=== PATIENT | female | born 1950 | race Two or more races ===

== ENCOUNTER 2019-03-16 23:56 | Inpatient (IN) | payer OTHER ==
[~2019-03-16] VITALS: Ht 152.4 cm; Wt 47.6 kg
[2019-03-17] MEDS ORDERED: SODIUM CHLORIDE 0.9% 1,000 ML IV ONE (00:30)
[2019-03-17] MEDS ORDERED: LORAZEPAM 1MG TABLET PO ONE (01:30)
[2019-03-17 01:42] LABS: BASOPHILS % 0.4 % (0.0-2.0); EOSINOPHILS % 0.6 % (0.0-5.0); HEMATOCRIT. 42.1 % (36.0-48.0); HEMOGLOBIN. 13.9 g/dL (12.0-16.0); LYMPHOCYTES % 18.5 % (20.0-50.0); MEAN CORPUSCULAR HEMOGLOBIN 29.1 pg (28.0-32.0); MEAN PLATELET VOLUME 10.4 fl (7.4-10.4); MONOCYTES % 6.7 % (2.0-8.0); NEUTROPHILS % 73.8 % (40.0-76.0); PLATELET 309 x1000/uL (130-400); RED BLOOD CELL COUNT 4.79 mill/uL (4.2-5.4); RED CELL DISTRIBUTION WIDTH 14.5 % (11.6-14.6)
[2019-03-17 01:45] LABS: CHLORIDE 105 mEq/L (98-107)
[2019-03-17 01:49] LABS: ETHANOL BLOOD < 10 mg/dL
[2019-03-17 01:53] LABS: CREATINE KINASE 445 IU/L (26-192)
[2019-03-17] MEDS ORDERED: HALOPERIDOL LACTATE 5MG/ML VIAL IM ONE (02:00)
[2019-03-17] MEDS ORDERED: ZIPRASIDONE MESYLATE 20MG/VIAL IM ONE (02:15)
[2019-03-17 02:29] LABS: CLARITY URINE CLEAR (CLEAR); COLOR URINE YELLOW (YELLOW); KETONES URINE TRACE (NEGATIVE); LEUKOCYTE ESTERASE URINE NEGATIVE (NEGATIVE); NITRITE URINE NEGATIVE (NEGATIVE); OCCULT BLOOD URINE 2+ (NEGATIVE); PH URINE 5.5 (4.5-8.0); PROTEIN URINE TRACE (NEGATIVE); SPECIFIC GRAVITY URINE 1.016 (1.005-1.030); UROBILINOGEN URINE 0.2 E.U./dL (0.2-1.0)
[2019-03-17] MEDS ORDERED: CEFTRIAXONE 1 G PREMIX 50 ML IV NR (02:45)
[2019-03-17] MEDS ORDERED: AZITHROMYCIN 500 MG in DEXT 5% WATER 250 ML IV SCH (02:45)
[2019-03-17 03:02] LABS: *AMPHETAMINES SCREEN URINE NEGATIVE (NEGATIVE)
[2019-03-17 03:03] LABS: *BARBITURATES SCREEN URINE NEGATIVE (NEGATIVE)
[2019-03-17 03:04] LABS: *BENZODIAZEPINES SCREEN URINE NEGATIVE (NEGATIVE); *COCAINE SCREEN URINE NEGATIVE (NEGATIVE); METHADONE URINE SCREEN NEGATIVE (NEGATIVE); OPIATES URINE SCREEN NEGATIVE (NEGATIVE); PHENCYCLIDINE URINE SCREEN NEGATIVE (NEGATIVE)
[2019-03-17 03:05] LABS: CANNABINOID URINE SCREEN NEGATIVE (NEGATIVE)
[2019-03-17] MEDS ORDERED: ONDANSETRON HCL 4MG/2ML INJ IV PRN (14:30)
[2019-03-17] MEDS ORDERED: CEFTRIAXONE 1 G PREMIX 50 ML IV SCH (14:30)
[2019-03-17] MEDS ORDERED: ACETAMINOPHEN 325MG TABLET PO PRN (14:30)
[2019-03-17 15:18] VITALS: BP 133/74
[2019-03-17] MEDS: SODIUM CHLORIDE 0.9% 1,000 ML IV SCH (15:55)
[2019-03-17] MEDS ORDERED: DEXTROSE 50% WATER 50ML SYRINGE IV PRN (16:15)
[2019-03-17] MEDS: INSULIN LISPRO 100 UNITS/ML SUBCUT SCH ×2 (18:10→21:00)
[2019-03-17] MEDS: BLOOD SUGAR DIAGNOSTIC STRIP TEST SCH ×2 (18:25→21:32)
[2019-03-17] MEDS: HEPARIN 5000 UNITS/ML VIAL SUBCUT SCH (21:33)
[2019-03-17] MEDS: HALOPERIDOL LACTATE 5MG/ML VIAL IM PRN (23:04)
[2019-03-18] VITALS: BP 107/60
[2019-03-18] MEDS: CEFTRIAXONE 1 G PREMIX 50 ML IV SCH (02:45)
[2019-03-18] MEDS: SODIUM CHLORIDE 0.9% 1,000 ML IV SCH (02:45)
[2019-03-18 04:00] VITALS: BP 136/79
[2019-03-18] MEDS: AZITHROMYCIN 500 MG in DEXT 5% WATER 250 ML IV SCH (04:13)
[2019-03-18 06:44] LABS: BASOPHILS % 0.8 % (0.0-2.0); HEMATOCRIT. 36.9 % (36.0-48.0); HEMOGLOBIN. 12.2 g/dL (12.0-16.0); LYMPHOCYTES % 30.1 % (20.0-50.0); MEAN CORPUSCULAR HEMOGLOBIN 29.1 pg (28.0-32.0); MEAN CORPUSCULAR VOLUME 87.7 fL (81.0-99.0); MEAN PLATELET VOLUME 10.8 fl (7.4-10.4); MONOCYTES % 10.3 % (2.0-8.0); NEUTROPHILS % 55.8 % (40.0-76.0); PLATELET 289 x1000/uL (130-400); RED BLOOD CELL COUNT 4.21 mill/uL (4.2-5.4); RED CELL DISTRIBUTION WIDTH 14.6 % (11.6-14.6)
[2019-03-18] MEDS: BLOOD SUGAR DIAGNOSTIC STRIP TEST SCH ×4 (07:33→21:30)
[2019-03-18] MEDS: INSULIN LISPRO 100 UNITS/ML SUBCUT SCH ×4 (07:34→21:00)
[2019-03-18 08:00] VITALS: BP 161/92
[2019-03-18 09:46] LABS: CHLORIDE 107 mEq/L (98-107)
[2019-03-18] MEDS: HEPARIN 5000 UNITS/ML VIAL SUBCUT SCH ×2 (10:34→21:30)
[2019-03-18] MEDS ORDERED: GUAIFENESIN-DM 200MG-20MG/10ML UDC PO PRN (11:45)
[2019-03-18 12:15] VITALS: BP 157/77
[2019-03-18] MEDS: RISPERIDONE 0.5MG TABLET PO SCH (14:44)
[2019-03-18 16:04] VITALS: BP 148/63
[2019-03-18 20:00] VITALS: BP 134/88
[2019-03-18] MEDS: HALOPERIDOL LACTATE 5MG/ML VIAL IM PRN (21:04)
[2019-03-19] VITALS: BP 144/72
[2019-03-19] MEDS: CEFTRIAXONE 1 G PREMIX 50 ML IV SCH (03:28)
[2019-03-19] MEDS: SODIUM CHLORIDE 0.9% 1,000 ML IV SCH ×2 (03:28→18:54)
[2019-03-19 04:00] VITALS: BP 152/84
[2019-03-19] MEDS: AZITHROMYCIN 500 MG in DEXT 5% WATER 250 ML IV SCH (04:37)
[2019-03-19] MEDS: BLOOD SUGAR DIAGNOSTIC STRIP TEST SCH ×4 (06:46→20:33)
[2019-03-19 08:00] VITALS: BP 126/67
[2019-03-19] MEDS: HEPARIN 5000 UNITS/ML VIAL SUBCUT SCH ×2 (08:38→20:48)
[2019-03-19] MEDS: RISPERIDONE 0.5MG TABLET PO SCH (08:38)
[2019-03-19] MEDS: INSULIN LISPRO 100 UNITS/ML SUBCUT SCH ×4 (08:39→20:33)
[2019-03-19 12:00] VITALS: BP 106/84
[2019-03-19 13:20] LABS: CHLORIDE 109 mEq/L (98-107)
[2019-03-19 13:26] LABS: BASOPHILS % 0.9 % (0.0-2.0); EOSINOPHILS % 2.1 % (0.0-5.0); HEMATOCRIT. 40.5 % (36.0-48.0); HEMOGLOBIN. 13.2 g/dL (12.0-16.0); LYMPHOCYTES % 41.1 % (20.0-50.0); MEAN CORPUSCULAR HEMOGLOBIN 28.7 pg (28.0-32.0); MEAN CORPUSCULAR VOLUME 88.2 fL (81.0-99.0); MEAN PLATELET VOLUME 9.9 fl (7.4-10.4); MONOCYTES % 10.3 % (2.0-8.0); NEUTROPHILS % 45.6 % (40.0-76.0); PLATELET 312 x1000/uL (130-400); RED BLOOD CELL COUNT 4.59 mill/uL (4.2-5.4); RED CELL DISTRIBUTION WIDTH 14.5 % (11.6-14.6)
[2019-03-19 16:00] VITALS: BP 139/89
[2019-03-19 20:00] VITALS: BP 142/91
[2019-03-20] VITALS: BP 124/77
[2019-03-20] MEDS: CEFTRIAXONE 1 G PREMIX 50 ML IV SCH (03:37)
[2019-03-20 04:00] VITALS: BP 139/80
[2019-03-20] MEDS: AZITHROMYCIN 500 MG in DEXT 5% WATER 250 ML IV SCH (04:09)
[2019-03-20] MEDS: SODIUM CHLORIDE 0.9% 1,000 ML IV SCH (04:11)
[2019-03-20 06:30] LABS: CHLORIDE 108 mEq/L (98-107)
[2019-03-20] MEDS: BLOOD SUGAR DIAGNOSTIC STRIP TEST SCH ×4 (06:41→21:25)
[2019-03-20 06:59] LABS: BASOPHILS % 0.9 % (0.0-2.0); HEMATOCRIT. 43.1 % (36.0-48.0); HEMOGLOBIN. 14.4 g/dL (12.0-16.0); LYMPHOCYTES % 38.5 % (20.0-50.0); MEAN CORPUSCULAR HEMOGLOBIN 29.5 pg (28.0-32.0); MEAN CORPUSCULAR VOLUME 88.4 fL (81.0-99.0); MEAN PLATELET VOLUME 10.5 fl (7.4-10.4); NEUTROPHILS % 46.6 % (40.0-76.0); PLATELET 301 x1000/uL (130-400); RED BLOOD CELL COUNT 4.88 mill/uL (4.2-5.4); RED CELL DISTRIBUTION WIDTH 14.8 % (11.6-14.6)
[2019-03-20] MEDS: INSULIN LISPRO 100 UNITS/ML SUBCUT SCH ×4 (07:13→21:00)
[2019-03-20 08:00] VITALS: BP 146/82
[2019-03-20] MEDS: RISPERIDONE 0.5MG TABLET PO SCH ×2 (08:44→09:00)
[2019-03-20] MEDS: HEPARIN 5000 UNITS/ML VIAL SUBCUT SCH ×2 (08:45→21:30)
[2019-03-20 10:52] LABS: BG BASE EXCESS 0.4 mmol/L (-2.0-2.0); BG DEOXYHEMOGLOBIN 4.2 % (0.0-5.0); BG HCO3 ACT 24.1 mmol/L (22.0-26.0); BG OXYGEN SATURATION 95.8 % (92.0-98.5); BG OXYHEMOGLOBIN 94.8 % (94.0-97.0); BG PCO2 35.9 mmHg (35.0-45.0); BG PH 7.445 (7.350-7.450); BG PO2 75.9 mmHg (75.0-100.0); BG SAMPLE SITE RIGHT RADIAL; BG TOTAL HEMOGLOBIN 13.7 g/dL (12.0-18.0); BG VENT MODE ROOM AIR
[2019-03-20] MEDS ORDERED: LIDOCAINE HCL/PF 1% 2ML VIAL ONE (12:50)
[2019-03-20 17:00] VITALS: BP 129/84
[2019-03-20 20:00] VITALS: BP 138/85
[2019-03-21] VITALS: BP_SYST 126; BP_SYST 129; BP_SYST 138; BP_DIAS 82; BP_DIAS 85; BP_DIAS 86
[2019-03-21] MEDS: SODIUM CHLORIDE 0.9% 1,000 ML IV SCH (02:37)
[2019-03-21] MEDS: CEFTRIAXONE 1 G PREMIX 50 ML IV SCH (02:38)
[2019-03-21] MEDS: AZITHROMYCIN 500 MG in DEXT 5% WATER 250 ML IV SCH (03:46)
[2019-03-21 04:11] VITALS: BP 126/83
[2019-03-21 06:19] LABS: BASOPHILS % 0.9 % (0.0-2.0); EOSINOPHILS % 5.2 % (0.0-5.0); HEMATOCRIT. 40.7 % (36.0-48.0); HEMOGLOBIN. 13.7 g/dL (12.0-16.0); LYMPHOCYTES % 39.2 % (20.0-50.0); MEAN CORPUSCULAR HEMOGLOBIN 29.4 pg (28.0-32.0); MEAN CORPUSCULAR VOLUME 87.7 fL (81.0-99.0); MEAN PLATELET VOLUME 10.8 fl (7.4-10.4); MONOCYTES % 9.9 % (2.0-8.0); NEUTROPHILS % 44.8 % (40.0-76.0); PLATELET 312 x1000/uL (130-400); RED BLOOD CELL COUNT 4.64 mill/uL (4.2-5.4); RED CELL DISTRIBUTION WIDTH 14.7 % (11.6-14.6)
[2019-03-21] MEDS: BLOOD SUGAR DIAGNOSTIC STRIP TEST SCH ×4 (06:25→21:58)
[2019-03-21 07:33] LABS: CHLORIDE 106 mEq/L (98-107)
[2019-03-21] MEDS: INSULIN LISPRO 100 UNITS/ML SUBCUT SCH ×4 (07:59→21:00)
[2019-03-21 08:00] VITALS: BP 143/73
[2019-03-21] MEDS: HEPARIN 5000 UNITS/ML VIAL SUBCUT SCH ×2 (08:39→21:58)
[2019-03-21] MEDS: RISPERIDONE 0.25MG TABLET PO SCH (11:37)
[2019-03-21 12:00] VITALS: BP 122/76
[2019-03-21 16:00] VITALS: BP 145/83
[2019-03-21 20:00] VITALS: BP_SYST 125; BP_SYST 127; BP_DIAS 71; BP_DIAS 76
[2019-03-22] VITALS: BP 127/76
[2019-03-22] MEDS: CEFTRIAXONE 1 G PREMIX 50 ML IV SCH (03:10)
[2019-03-22 04:00] VITALS: BP 127/79
[2019-03-22] MEDS: AZITHROMYCIN 500 MG in DEXT 5% WATER 250 ML IV SCH (04:22)
[2019-03-22] MEDS: BLOOD SUGAR DIAGNOSTIC STRIP TEST SCH ×4 (06:30→20:40)
[2019-03-22 08:00] VITALS: BP 134/71
[2019-03-22] MEDS: INSULIN LISPRO 100 UNITS/ML SUBCUT SCH ×4 (08:10→20:40)
[2019-03-22] MEDS: RISPERIDONE 0.25MG TABLET PO SCH (08:43)
[2019-03-22] MEDS: HEPARIN 5000 UNITS/ML VIAL SUBCUT SCH ×2 (08:44→20:43)
[2019-03-22 12:00] VITALS: BP 147/80
[2019-03-22 12:36] LABS: HEMOGLOBIN 14.6 g/dL (12.0-16.0); MEAN CORPUSCULAR HEMOGLOBIN 29.8 pg (28.0-32.0); MEAN CORPUSCULAR VOLUME 87.8 fL (81.0-99.0); PLATELET 329 x1000/uL (130-400); RED BLOOD CELL COUNT 4.89 mill/uL (4.2-5.4); RED CELL DISTRIBUTION WIDTH 14.8 % (11.6-14.6)
[2019-03-22 12:47] LABS: CHLORIDE 107 mEq/L (98-107)
[2019-03-22 16:00] VITALS: BP 124/68
[2019-03-22] MEDS ORDERED: RISPERIDONE 0.25MG TABLET PO SCH (17:00)
[2019-03-22 20:00] VITALS: BP 120/75
[2019-03-23] VITALS: BP 118/66
[2019-03-23 04:00] VITALS: BP 125/74
[2019-03-23] MEDS: CEFTRIAXONE 1 G PREMIX 50 ML IV SCH (04:11)
[2019-03-23] MEDS: AZITHROMYCIN 500 MG in DEXT 5% WATER 250 ML IV SCH (04:41)
[2019-03-23 05:51] LABS: BASOPHILS % 0.9 % (0.0-2.0); HEMATOCRIT. 46.9 % (36.0-48.0); HEMOGLOBIN. 15.5 g/dL (12.0-16.0); LYMPHOCYTES % 36.7 % (20.0-50.0); MEAN CORPUSCULAR HEMOGLOBIN 29.4 pg (28.0-32.0); MEAN CORPUSCULAR VOLUME 88.9 fL (81.0-99.0); MEAN PLATELET VOLUME 10.2 fl (7.4-10.4); MONOCYTES % 11.9 % (2.0-8.0); NEUTROPHILS % 45.5 % (40.0-76.0); PLATELET 343 x1000/uL (130-400); RED BLOOD CELL COUNT 5.27 mill/uL (4.2-5.4); RED CELL DISTRIBUTION WIDTH 14.6 % (11.6-14.6)
[2019-03-23] MEDS: BLOOD SUGAR DIAGNOSTIC STRIP TEST SCH ×4 (06:03→20:55)
[2019-03-23 06:06] LABS: CHLORIDE 108 mEq/L (98-107)
[2019-03-23 08:00] VITALS: BP 122/77
[2019-03-23] MEDS: INSULIN LISPRO 100 UNITS/ML SUBCUT SCH ×4 (08:02→20:48)
[2019-03-23] MEDS ORDERED: RISPERIDONE 1MG TABLET PO SCH (09:00)
[2019-03-23] MEDS: RISPERIDONE 0.5MG TABLET PO PRN ×2 (09:43→18:13)
[2019-03-23] MEDS: HEPARIN 5000 UNITS/ML VIAL SUBCUT SCH ×2 (09:47→20:47)
[2019-03-23 12:30] VITALS: BP 126/64
[2019-03-23] MEDS ORDERED: AZIT500T8 MT (15:33)
[2019-03-23 16:37] VITALS: BP 137/87
[2019-03-23 20:00] VITALS: BP 133/79
[2019-03-23] MEDS: RISPERIDONE 1MG TABLET PO SCH (20:47)
[2019-03-24] VITALS: BP 131/80
[2019-03-24 04:00] VITALS: BP 125/80
[2019-03-24] MEDS: BLOOD SUGAR DIAGNOSTIC STRIP TEST SCH ×2 (06:15→12:40)
[2019-03-24] MEDS ORDERED: DIPHENHYDRAMINE 50MG/ML VIAL IV PRN (07:30)
[2019-03-24 08:00] VITALS: BP 125/80
[2019-03-24] MEDS: INSULIN LISPRO 100 UNITS/ML SUBCUT SCH ×2 (08:08→13:10)
[2019-03-24] MEDS: RISPERIDONE 1MG TABLET PO SCH (08:19)
[2019-03-24] MEDS: HEPARIN 5000 UNITS/ML VIAL SUBCUT SCH (08:19)
[2019-03-24 12:00] VITALS: BP 128/78
[2019-03-24 13:11] VITALS: BP 128/78
[2019-03-24 16:00] VITALS: BP 137/79
== END 2019-03-24 17:29 | DRG 871 ==
LOC: ER 23:56 → EDBD 03-17 03:07 → 7WST 03-17 03:07 → ENRESERV 03-17 11:56
PROVIDERS: ADMIT Internal Medicine; ATTEND Internal Medicine
DX: A41.9 Sepsis, unspecified organism (principal); J18.9 Pneumonia, unspecified organism; G92 Toxic encephalopathy; E11.9 Type 2 diabetes mellitus without complications; I10 Essential (primary) hypertension; Z85.3 Personal history of malignant neoplasm of breast; Z78.1 Physical restraint status
CPT/HCPCS: 36415; 36600; 71045; 80048; 80053; 80305; 80307; 80320; 80329; 81003; 82140; 82375; 82550; 82805; 82962; 83605; 83735; 83880; 84145; 84443; 84484; 85025; 85027; 99285; J0456; J0696; J1630; J1644; J1815; J3486; J3490; J7030; J7060; G0480

== ENCOUNTER 2019-04-01 13:05 | Inpatient (IN) | payer OTHER ==
[~2019-04-01] VITALS: Ht 152.4 cm; Wt 49.4 kg
[~2019-04-01 13:05] MED LIST: AZIT500T8 MT
[2019-04-01] MEDS ORDERED: SODIUM CHLORIDE 0.9% 1,000 ML IV ONE (15:30)
[2019-04-01 15:45] LABS: BASOPHILS % 1.1 % (0.0-2.0); EOSINOPHILS % 2.8 % (0.0-5.0); HEMATOCRIT. 40.3 % (36.0-48.0); HEMOGLOBIN. 13.3 g/dL (12.0-16.0); LYMPHOCYTES % 46.3 % (20.0-50.0); MEAN CORPUSCULAR HEMOGLOBIN 29.3 pg (28.0-32.0); MEAN CORPUSCULAR VOLUME 88.6 fL (81.0-99.0); MEAN PLATELET VOLUME 11.1 fl (7.4-10.4); NEUTROPHILS % 41.8 % (40.0-76.0); PLATELET 221 x1000/uL (130-400); RED BLOOD CELL COUNT 4.55 mill/uL (4.2-5.4); RED CELL DISTRIBUTION WIDTH 14.8 % (11.6-14.6)
[2019-04-01 15:51] LABS: CHLORIDE 105 mEq/L (98-107)
[2019-04-01] MEDS ORDERED: IOHEXOL-350 100 ML BOTTLE ONE (17:39)
[2019-04-01] MEDS ORDERED: ASPIRIN 81MG TABLET PO ONE (18:30)
[2019-04-01] MEDS ORDERED: IPRATROPIUM/ALBUTEROL 0.5-3(2.5)MG/3ML NEB HHN PRN (21:30)
[2019-04-01] MEDS ORDERED: ACETAMINOPHEN 325MG TABLET PO PRN (21:30)
[2019-04-01] MEDS ORDERED: ONDANSETRON HCL 4MG/2ML INJ IV PRN (21:30)
[2019-04-01 23:05] VITALS: BP 148/91
[2019-04-02] VITALS: BP 148/91
[2019-04-02] MEDS: ENOXAPARIN 40MG/0.4ML SYR SUBCUT SCH ×2 (00:56→22:06)
[2019-04-02] MEDS ORDERED: DEXTROSE 50% WATER 50ML SYRINGE IV PRN (01:00)
[2019-04-02 04:00] VITALS: BP 149/80
[2019-04-02] MEDS: BLOOD SUGAR DIAGNOSTIC STRIP TEST SCH ×4 (05:52→21:00)
[2019-04-02 07:45] LABS: CHLORIDE 108 mEq/L (98-107)
[2019-04-02] MEDS: INSULIN LISPRO 100 UNITS/ML SUBCUT SCH ×4 (07:50→21:00)
[2019-04-02 08:26] LABS: BASOPHILS % 0.7 % (0.0-2.0); EOSINOPHILS % 4.6 % (0.0-5.0); HEMATOCRIT. 37.2 % (36.0-48.0); HEMOGLOBIN. 12.7 g/dL (12.0-16.0); LYMPHOCYTES % 37.7 % (20.0-50.0); MEAN CORPUSCULAR HEMOGLOBIN 29.9 pg (28.0-32.0); MEAN CORPUSCULAR VOLUME 87.5 fL (81.0-99.0); MEAN PLATELET VOLUME 11.1 fl (7.4-10.4); MONOCYTES % 8.6 % (2.0-8.0); NEUTROPHILS % 48.4 % (40.0-76.0); PLATELET 205 x1000/uL (130-400); RED BLOOD CELL COUNT 4.25 mill/uL (4.2-5.4); RED CELL DISTRIBUTION WIDTH 14.6 % (11.6-14.6)
[2019-04-02 09:04] VITALS: BP 148/89
[2019-04-02 11:27] VITALS: BP 141/82
[2019-04-02] MEDS: ASPIRIN 81MG TABLET PO SCH (11:44)
[2019-04-02] MEDS: METOPROLOL TARTRATE 50MG TABLET PO SCH ×2 (11:45→22:06)
[2019-04-02 17:20] VITALS: BP 101/66
[2019-04-02 20:00] VITALS: BP 115/81
[2019-04-02] MEDS: ATORVASTATIN CALCIUM 20MG TABLET PO SCH (22:05)
[2019-04-02] MEDS: LORAZEPAM 2MG/ML CPJ IV PRN (22:22)
[2019-04-03 04:00] VITALS: BP 105/61
[2019-04-03 06:00] VITALS: BP 105/61
[2019-04-03] MEDS: BLOOD SUGAR DIAGNOSTIC STRIP TEST SCH ×4 (06:36→21:00)
[2019-04-03] MEDS: INSULIN LISPRO 100 UNITS/ML SUBCUT SCH ×4 (07:35→20:59)
[2019-04-03 08:00] VITALS: BP 129/69
[2019-04-03] MEDS: ASPIRIN 81MG TABLET PO SCH (09:11)
[2019-04-03] MEDS: METOPROLOL TARTRATE 50MG TABLET PO SCH ×2 (09:12→20:57)
[2019-04-03 12:00] VITALS: BP 116/74
[2019-04-03] MEDS: LORAZEPAM 2MG/ML CPJ IV PRN (12:57)
[2019-04-03] MEDS ORDERED: IOHEXOL-350 100 ML BOTTLE ONE (14:17)
[2019-04-03 20:00] VITALS: BP 135/85
[2019-04-03] MEDS: ATORVASTATIN CALCIUM 20MG TABLET PO SCH (20:57)
[2019-04-03] MEDS: ENOXAPARIN 40MG/0.4ML SYR SUBCUT SCH (20:59)
[2019-04-04 00:45] VITALS: BP 131/78
[2019-04-04 04:00] VITALS: BP 121/73
[2019-04-04] MEDS: BLOOD SUGAR DIAGNOSTIC STRIP TEST SCH ×4 (06:32→21:00)
[2019-04-04 07:12] LABS: BASOPHILS % 0.8 % (0.0-2.0); EOSINOPHILS % 3.9 % (0.0-5.0); HEMATOCRIT. 37.8 % (36.0-48.0); HEMOGLOBIN. 12.7 g/dL (12.0-16.0); LYMPHOCYTES % 37.2 % (20.0-50.0); MEAN CORPUSCULAR HEMOGLOBIN 29.5 pg (28.0-32.0); MEAN CORPUSCULAR VOLUME 87.8 fL (81.0-99.0); MONOCYTES % 8.8 % (2.0-8.0); NEUTROPHILS % 49.3 % (40.0-76.0); PLATELET 199 x1000/uL (130-400); RED BLOOD CELL COUNT 4.31 mill/uL (4.2-5.4); RED CELL DISTRIBUTION WIDTH 14.8 % (11.6-14.6)
[2019-04-04] MEDS: INSULIN LISPRO 100 UNITS/ML SUBCUT SCH ×4 (07:44→21:00)
[2019-04-04 08:14] VITALS: BP 128/72
[2019-04-04 08:22] LABS: CHLORIDE 106 mEq/L (98-107)
[2019-04-04] MEDS: ASPIRIN 81MG TABLET PO SCH (08:28)
[2019-04-04] MEDS: METOPROLOL TARTRATE 50MG TABLET PO SCH ×3 (08:28→21:00)
[2019-04-04 12:00] VITALS: BP 129/79
[2019-04-04] MEDS ORDERED: LORAZEPAM 2MG/ML CPJ IM PRN (15:56)
[2019-04-04 16:00] VITALS: BP 131/76
[2019-04-04] MEDS: QUETIAPINE FUMARATE 25MG TABLET PO SCH (16:10)
[2019-04-04 20:00] VITALS: BP 110/66
[2019-04-04] MEDS: ATORVASTATIN CALCIUM 20MG TABLET PO SCH ×2 (20:46→21:00)
[2019-04-04] MEDS: ENOXAPARIN 40MG/0.4ML SYR SUBCUT SCH ×2 (20:47→21:00)
[2019-04-05] VITALS (7 sets, daily range): BP systolic 108–130; BP diastolic 70–82
[2019-04-05] MEDS: BLOOD SUGAR DIAGNOSTIC STRIP TEST SCH ×4 (06:57→21:09)
[2019-04-05] MEDS: INSULIN LISPRO 100 UNITS/ML SUBCUT SCH ×4 (07:50→21:00)
[2019-04-05] MEDS: METOPROLOL TARTRATE 50MG TABLET PO SCH ×4 (08:55→21:08)
[2019-04-05] MEDS: ASPIRIN 81MG TABLET PO SCH ×3 (08:55→09:07)
[2019-04-05] MEDS: QUETIAPINE FUMARATE 25MG TABLET PO SCH ×3 (08:55→09:07)
[2019-04-05] MEDS ORDERED: LORAZEPAM 0.5MG TABLET PO PRN (19:45)
[2019-04-05] MEDS: ATORVASTATIN CALCIUM 20MG TABLET PO SCH (21:07)
[2019-04-05] MEDS: ENOXAPARIN 40MG/0.4ML SYR SUBCUT SCH (21:09)
[2019-04-06] VITALS: BP 106/66
[2019-04-06 04:00] VITALS: BP 146/82
[2019-04-06] MEDS: BLOOD SUGAR DIAGNOSTIC STRIP TEST SCH (07:20)
[2019-04-06] MEDS: INSULIN LISPRO 100 UNITS/ML SUBCUT SCH (07:50)
[2019-04-06 08:00] VITALS: BP 125/83
[2019-04-06] MEDS: ASPIRIN 81MG TABLET PO SCH (08:38)
[2019-04-06] MEDS: METOPROLOL TARTRATE 50MG TABLET PO SCH (08:38)
[2019-04-06] MEDS: QUETIAPINE FUMARATE 25MG TABLET PO SCH (08:38)
[2019-04-06 12:00] VITALS: BP 95/60
[2019-04-06 13:52] VITALS: BP 95/50
== END 2019-04-06 14:24 | DRG 206 ==
LOC: ER 13:05 → 6WST 20:31 → EDBEDREQTM 20:36 → EDBEDREQ 20:36 → ENRESERV 21:27 → 6WST 04-03 20:05
PROVIDERS: ADMIT Internal Medicine Nephrology; ATTEND Internal Medicine Nephrology
DX: M94.0 Chondrocostal junction syndrome [Tietze] (principal); I10 Essential (primary) hypertension; E11.9 Type 2 diabetes mellitus without complications; E78.5 Hyperlipidemia, unspecified; F20.9 Schizophrenia, unspecified; E78.00 Pure hypercholesterolemia, unspecified; R07.89 Other chest pain; Z90.12 Acquired absence of left breast and nipple; Z85.3 Personal history of malignant neoplasm of breast; Z79.82 Long term (current) use of aspirin; Z79.899 Other long term (current) drug therapy
CPT/HCPCS: 36415; 71045; 71275; 80048; 80053; 82962; 83880; 84484; 85025; 93005; 93306; 99285; J1650; J1815; J2060; J7030; Q9967

== ENCOUNTER 2022-01-07 14:54 | Inpatient (IN) | payer OTHER ==
[~2022-01-07] VITALS: Ht 154.9 cm; Wt 55.3 kg
[2022-01-07 16:48] LABS: EOSINOPHILS % 4.2 % (0.0-5.0); HEMATOCRIT. 41.2 % (36.0-48.0); HEMOGLOBIN. 13.6 g/dL (12.0-16.0); LYMPHOCYTES % 38.2 % (20.0-50.0); MEAN CORPUSCULAR HEMOGLOBIN 29.2 pg (28.0-32.0); MEAN CORPUSCULAR VOLUME 88.5 fL (81.0-99.0); MEAN PLATELET VOLUME 10.2 fl (7.4-10.4); MONOCYTES % 7.2 % (2.0-8.0); NEUTROPHILS % 49.4 % (40.0-76.0); PLATELET 332 x1000/uL (130-400); RED BLOOD CELL COUNT 4.65 mill/uL (4.2-5.4)
[2022-01-07 16:58] LABS: PROTHROMBIN TIME 10.3 sec (9.6-11.0)
[2022-01-07 16:59] LABS: CHLORIDE 103 mEq/L (98-107)
[2022-01-07] MEDS ORDERED: CLONIDINE 0.1MG TABLET PO PRN (23:30)
[2022-01-07] MEDS ORDERED: ONDANSETRON HCL 4MG/2ML INJ IV PRN (23:30)
[2022-01-07] MEDS ORDERED: DIPHENHYDRAMINE 50MG/ML VIAL IV PRN (23:30)
[2022-01-07] MEDS ORDERED: DEXTROSE 50% WATER 50ML SYRINGE IV PRN (23:30)
[2022-01-07] MEDS ORDERED: ACETAMINOPHEN 325MG TABLET PO PRN (23:30)
[2022-01-08] MEDS: SODIUM CHLORIDE 0.9% INJ 3ML FLUSH IVF SCH ×3 (06:00→20:57)
[2022-01-08] MEDS: BLOOD SUGAR DIAGNOSTIC STRIP TEST SCH ×4 (06:49→20:12)
[2022-01-08 09:12] VITALS: BP 115/54
[2022-01-08] MEDS ORDERED: INFLUENZA VACCINE 05/PF 0.5 ML SYRINGE IM ONE (10:30)
[2022-01-08] MEDS ORDERED: PNEUMOCOCCAL 23-VAL P-SAC VAC 0.5 ML IM ONE (10:45)
[2022-01-08 12:00] VITALS: BP 133/62
[2022-01-08] MEDS: INSULIN LISPRO 100 UNITS/ML SUBCUT SCH ×3 (12:15→20:57)
[2022-01-08 16:00] VITALS: BP 138/81
[2022-01-08] MEDS: ACETAMINOPHEN 325MG TABLET PO PRN (18:22)
[2022-01-08 20:00] VITALS: BP 138/87
[2022-01-08 20:17] LABS: T4 FREE 1.61 ng/dL (0.76-1.46)
[2022-01-08] MEDS: METOPROLOL TARTRATE 25MG TABLET PO SCH (20:38)
[2022-01-09] VITALS: BP 128/71
[2022-01-09 04:00] VITALS: BP 130/83
[2022-01-09] MEDS: SODIUM CHLORIDE 0.9% INJ 3ML FLUSH IVF SCH ×3 (06:00→21:02)
[2022-01-09] MEDS: BLOOD SUGAR DIAGNOSTIC STRIP TEST SCH ×4 (06:39→20:56)
[2022-01-09] MEDS: INSULIN LISPRO 100 UNITS/ML SUBCUT SCH ×4 (07:40→21:02)
[2022-01-09 08:00] VITALS: BP 130/108
[2022-01-09] MEDS: METOPROLOL TARTRATE 25MG TABLET PO SCH ×2 (08:50→21:02)
[2022-01-09 12:00] VITALS: BP 126/82
[2022-01-09 16:15] VITALS: BP 116/52
[2022-01-09] MEDS: RISPERIDONE 0.5MG TABLET PO SCH (18:07)
[2022-01-09] MEDS: ACETAMINOPHEN 325MG TABLET PO PRN (18:11)
[2022-01-09 20:00] VITALS: BP 136/61
[2022-01-10] VITALS: BP 128/58
[2022-01-10 04:00] VITALS: BP 115/58
[2022-01-10] MEDS: SODIUM CHLORIDE 0.9% INJ 3ML FLUSH IVF SCH (06:27)
[2022-01-10] MEDS: BLOOD SUGAR DIAGNOSTIC STRIP TEST SCH ×2 (06:27→12:22)
[2022-01-10] MEDS: INSULIN LISPRO 100 UNITS/ML SUBCUT SCH ×2 (06:43→12:24)
[2022-01-10] MEDS ORDERED: METFORMIN HCL 500MG TABLET PO SCH (07:40)
[2022-01-10 08:00] VITALS: BP 127/79
[2022-01-10] MEDS: RISPERIDONE 0.5MG TABLET PO SCH (10:03)
[2022-01-10 16:06] VITALS: BP 109/76
[2022-01-10] MEDS ORDERED: METOPROLOL TARTRATE 50MG TABLET PO SCH (21:00)
[2022-01-12 08:06] LABS: *CREATININE RANDOM URINE 45.6 mg/dL (Not Estab.); MICROALBUMIN RANDOM URINE <3.0 ug/mL (Not Estab.)
[2022-01-13 13:11] LABS: A/G RATIO 0.8 (0.7-1.7); ALBUMIN 3.3 g/dL (2.9-4.4); ALPHA-1-GLOBULIN 0.3 g/dL (0.0-0.4); ALPHA-2-GLOBULIN 0.9 g/dL (0.4-1.0); BETA GLOBULIN 1.3 g/dL (0.7-1.3); GAMMA GLOBULINS 1.9 g/dL (0.4-1.8); GLOBULIN TOTAL 4.3 g/dL (2.2-3.9); M-SPIKE Not Observed g/dL (Not Observed); TOTAL PROTEIN SERUM 7.6 g/dL (6.0-8.5)
== END 2022-01-10 17:50 | disposition home or self-care (01) | DRG 103 ==
LOC: ER 14:54 → MICUSO 22:56 → EDBEDREQ 23:00 → EDBEDREQTM 23:00 → EDBEDREQSVC 23:00 → 8WST 01-08 08:59
PROVIDERS: ADMIT Internal Medicine; ATTEND Internal Medicine
DX: R51.9 Headache, unspecified (principal); M54.9 Dorsalgia, unspecified; F20.9 Schizophrenia, unspecified; Z20.822 Contact with and (suspected) exposure to COVID-19; E78.00 Pure hypercholesterolemia, unspecified; R62.7 Adult failure to thrive; E11.65 Type 2 diabetes mellitus with hyperglycemia; E05.90 Thyrotoxicosis, unspecified without thyrotoxic crisis or storm; I10 Essential (primary) hypertension; E88.09 Other disorders of plasma-protein metabolism, not elsewhere classified; Z68.23 Body mass index [BMI] 23.0-23.9, adult; Z90.12 Acquired absence of left breast and nipple; Z85.3 Personal history of malignant neoplasm of breast; Z79.4 Long term (current) use of insulin; Z85.9 Personal history of malignant neoplasm, unspecified; W19.XXXA Unspecified fall, initial encounter; Y93.89 Activity, other specified; Y92.009 Unspecified place in unspecified non-institutional (private) residence as the place of occurrence of the external cause; Y99.8 Other external cause status
CPT/HCPCS: 36415; 71045; 80053; 80061; 82043; 82533; 82570; 82962; 83036; 83520; 83880; 84155; 84165; 84439; 84443; 84481; 84484; 85025; 87426; 90686; 90732; 93005; 93970; 99285; C9803; J1815

== ENCOUNTER 2023-03-03 13:07 | Inpatient (IN) | payer MEDICARE, MEDICAID ==
[~2023-03-03] VITALS: Ht 165.1 cm; Wt 44.0 kg
[2023-03-03] MEDS: ACETAMINOPHEN 325MG TABLET PO NR ×2 (17:16→20:53)
[2023-03-03] MEDS ORDERED: LIDOCAINE HCL/PF 1% 10 MG/ML 5ML VIAL INFIL NR (17:30)
[2023-03-03] MEDS ORDERED: BACITRACIN ZINC OINT UDPKT TOP NR (17:30)
[2023-03-03] MEDS ORDERED: TETANUS, DIPHTHERIA, PERTUSSIS VAC/PF 0.5ML (>10YR OLD) IM ONE (17:30)
[2023-03-03 17:59] LABS: BASOPHILS % 0.6 % (0.0-2.0); EOSINOPHILS % 1.9 % (0.0-5.0); HEMATOCRIT. 39.2 % (36.0-48.0); HEMOGLOBIN. 12.7 g/dL (12.0-16.0); LYMPHOCYTES % 36.8 % (20.0-50.0); MEAN CORPUSCULAR HEMOGLOBIN 29.4 pg (28.0-32.0); MEAN CORPUSCULAR HGB CONC 32.4 g/dL (31.0-37.0); MEAN CORPUSCULAR VOLUME 90.7 fL (81.0-99.0); MEAN PLATELET VOLUME 9.6 fl (7.4-10.4); MONOCYTES % 7.6 % (2.0-8.0); NEUTROPHILS % 53.1 % (40.0-76.0); PLATELET 317 x1000/uL (130-400); RED BLOOD CELL COUNT 4.33 mill/uL (4.2-5.4); RED CELL DISTRIBUTION WIDTH 13.7 % (11.6-14.6); WHITE BLOOD COUNT 12.9 x1000/uL (4.5-11.0)
[2023-03-03 18:18] LABS: ALANINE AMINOTRANSFERASE 13 IU/L (10-49); ALBUMIN 4.1 g/dL (3.2-4.8); ASPARTATE AMINOTRANSFERASE 20 IU/L (<34); BILIRUBIN TOTAL 1.3 mg/dL (0.1-1.0); CALCIUM 9.3 mg/dL (8.7-10.4); CARBON DIOXIDE 28 mEq/L (21-32); CHLORIDE 102 mEq/L (98-107); CREATININE 0.5 mg/dL (0.6-1.0); GLUCOSE 119 mg/dL (70-105); POTASSIUM 3.9 mEq/L (3.5-5.1); SODIUM 136 mEq/L (136-145); UREA NITROGEN BLOOD 14 mg/dL (9-23)
[2023-03-03 18:22] LABS: TROPONIN I HIGH SENSITIVITY < 4 ng/L (3.0-34)
[2023-03-03] MEDS ORDERED: MIDAZOLAM HCL 2 MG/2 ML VIAL IM ONE (20:45)
[2023-03-03] MEDS ORDERED: IPRATROPIUM/ALBUTEROL 0.5-3(2.5)MG/3ML NEB NEB PRN (23:00)
[2023-03-03] MEDS ORDERED: GUAIFENESIN 200MG/10ML SUGAR FREE UDC PO PRN (23:00)
[2023-03-03] MEDS ORDERED: ONDANSETRON HCL 4MG/2ML INJ IV PRN (23:00)
[2023-03-03] MEDS ORDERED: LORAZEPAM 0.5MG TABLET PO PRN (23:00)
[2023-03-03] MEDS ORDERED: CLONIDINE 0.1MG TABLET PO PRN (23:00)
[2023-03-03] MEDS ORDERED: HYDROCODONE/ACETAMINOPHEN 5/325MG TABLET PO PRN (23:00)
[2023-03-03] MEDS ORDERED: MAGNESIUM/ALUMINUM HYDROXIDE/SIMETHICONE 30ML UDC PO PRN (23:00)
[2023-03-03] MEDS ORDERED: ACETAMINOPHEN 325MG TABLET PO PRN ×2 (23:00)
[2023-03-04 04:00] VITALS: BP 115/61; PULSE 56; RESP 20; TEMP 98.2
[2023-03-04 06:53] LABS: CALCIUM 9.1 mg/dL (8.7-10.4); CARBON DIOXIDE 26 mEq/L (21-32); CHLORIDE 104 mEq/L (98-107); CREATININE 0.4 mg/dL (0.6-1.0); GLUCOSE 117 mg/dL (70-105); POTASSIUM 3.8 mEq/L (3.5-5.1); SODIUM 138 mEq/L (136-145); T4 FREE 1.55 ng/dL (0.89-1.76); UREA NITROGEN BLOOD 13 mg/dL (9-23)
[2023-03-04 06:54] LABS: BASOPHILS % 0.8 % (0.0-2.0); EOSINOPHILS % 3.6 % (0.0-5.0); HEMATOCRIT. 40.3 % (36.0-48.0); HEMOGLOBIN. 13.3 g/dL (12.0-16.0); LYMPHOCYTES % 29.8 % (20.0-50.0); MEAN CORPUSCULAR HEMOGLOBIN 30.2 pg (28.0-32.0); MEAN CORPUSCULAR VOLUME 91.8 fL (81.0-99.0); MEAN PLATELET VOLUME 9.8 fl (7.4-10.4); MONOCYTES % 9.6 % (2.0-8.0); NEUTROPHILS % 56.2 % (40.0-76.0); PLATELET 326 x1000/uL (130-400); RED BLOOD CELL COUNT 4.39 mill/uL (4.2-5.4); RED CELL DISTRIBUTION WIDTH 13.8 % (11.6-14.6); WHITE BLOOD COUNT 10.1 x1000/uL (4.5-11.0)
[2023-03-04 07:11] LABS: THYROID STIMULATING HORMONE < 0.00 uIU/mL (0.55-4.78)
[2023-03-04 08:00] VITALS: BP 109/58; PULSE 90; RESP 18; TEMP 97.7
[2023-03-04 12:00] VITALS: BP 100/52; PULSE 92; RESP 20; TEMP 98.1
[2023-03-04 16:00] VITALS: BP 98/61; PULSE 99; RESP 18; TEMP 98.6
[2023-03-04 20:00] VITALS: BP 99/52; PULSE 79; RESP 20; TEMP 99.3
[2023-03-04 20:44] VITALS: BP 129/74; PULSE 88; RESP 20; TEMP 97.9
[2023-03-05 04:00] VITALS: TEMP 98
[2023-03-05 08:00] VITALS: BP 126/64; PULSE 89; RESP 18; TEMP 98.1
[2023-03-05] MEDS ORDERED: BUSPIRONE HCL 5MG TABLET PO SCH (09:15)
[2023-03-05 12:00] VITALS: BP 105/83; PULSE 80; RESP 18; TEMP 97.6
[2023-03-05 16:00] VITALS: BP 127/88; PULSE 72; RESP 18; TEMP 98.1
[2023-03-05 16:43] VITALS: BP 127/88; PULSE 72; TEMP 98.1; O2SAT 98
== END 2023-03-05 17:20 | disposition home or self-care (01) | DRG 605 ==
LOC: ER 13:07 → EDBD 22:17 → 8WST 22:17 → MERGE 22:17 → EDBEDREQTM 22:20 → EDBEDREQ 22:20
PROVIDERS: ADMIT Internal Medicine; ATTEND Internal Medicine
DX: S01.01XA Laceration without foreign body of scalp, initial encounter (principal); E11.9 Type 2 diabetes mellitus without complications; R62.50 Unspecified lack of expected normal physiological development in childhood; F41.9 Anxiety disorder, unspecified; Z79.4 Long term (current) use of insulin; Z85.3 Personal history of malignant neoplasm of breast; W01.0XXA Fall on same level from slipping, tripping and stumbling without subsequent striking against object, initial encounter; Y93.89 Activity, other specified; Y92.89 Other specified places as the place of occurrence of the external cause; Y99.8 Other external cause status
CPT/HCPCS: 36415; 80048; 80053; 83036; 84439; 84443; 84484; 85025; 93005; 97116; 97162; 97165; 99285; C1893; J2250; J3490